=== PATIENT | female | born 1995 | race American Indian/Alaskan Native ===

== ENCOUNTER 2017-12-31 13:59 | Emergency (ER) | payer SELFPAY ==
[2017-12-31 14:21] VITALS: BP 119/81
--- NOTE | 2017-12-31 17:02 | Emergency Department Report ---
Minor Respiratory - HPI Chief Complaint: Sore Throat Stated Complaint: TONSILS SWOLLEN Time Seen by Provider: 12/31/17 17:02 Duration: 4 Days Pain Location: Throat Severity: severe Minor Respiratory: Yes Sore Throat, Yes Able to Tolerate Fluids, Yes Sick Contacts, Yes Fever, No Rhinorrhea, No Ear Pain, No Cough, No Hemoptysis, No Chest Pain, No Shortness of Breath Other History: This is a 22 y.o. A.A. female that presents with sore throat for 4 days. Patient reports seeing white exudate 2 days ago. Her grandmother gave her some herbs which helped removed exudate but it is very difficult to swallow or open mouth. She is taking OTC NSAID's that are controlling pain for 2 hours at a time. Denies chest pain, congestion, SOB, and drooling. ED Review of Systems ROS: Stated complaint: TONSILS SWOLLEN Other details as noted in HPI Constitutional: denies: chills, fever, malaise ENT: throat pain. denies: ear pain, congestion Respiratory: denies: cough, shortness of breath, SOB with exertion, wheezing Cardiovascular: denies: chest pain, palpitations, dyspnea on exertion, syncope Gastrointestinal: denies: abdominal pain, nausea, vomiting, diarrhea Neurological: denies: headache, weakness, numbness, paresthesias Psychiatric: denies: anxiety, depression ED Past Medical Hx - Past Medical History Previous Medical History?: No - Surgical History Past Surgical History?: No - Social History Smoking Status: Current Some Day Smoker Substance Use Type: Alcohol, Marijuana - Medications Home Medications: Home Medications Medication Instructions Recorded Confirmed Last Taken Type Penicillin V Potassium 500 mg PO BID 10 Days #20 tablet 12/31/17 Unknown Rx Minor Respiratory Exam - Exam General: Vital signs noted. No distress. Alert and acting appropriately. HEENT: Yes Pharyngeal Erythema, Yes Moist Mucous Membranes, Yes Rhinorrhea ( turbinates congested and clear discharge), No Pharyngeal Exudates, No Conjuctival Injection, No Frontal Tenderness, No Maxillary Tenderness Ear: Neither TM Bulge, Neither TM Erythema, Neither EAC Pain, Neither EAC Discharge Neck: Yes Supple, No Adenopathy Lungs: Yes Good Air Exchange, No Wheezes, No Ronchi, No Stridor, No Cough, No Labored Respirations, No Retractions, No Use of Accessory Muscles, No Other Abnormal Lung Sounds Heart: Yes Regular, No Murmur Abdomen: Yes Normal Bowel Sounds, No Tenderness, No Peritoneal Signs Skin: No Rash, No Edema Neurologic: Alert and oriented, no deficits. Musculoskeletal: Unremarkable. ED Course Vital Signs 12/31/17 14:17 Temperature 99.3 F Pulse Rate 118 H Respiratory 20 Rate Blood Pressure 119/81 O2 Sat by Pulse 99 Oximetry ED Medical Decision Making - Medical Decision Making This is a 22 y.o. female that presents with sore throat for 4 days. Patient examined by me and stable. No distress noted. Rapid strep obtained and positive for strep. Vitals stable. Given bicillin I-A 1.2 mL IM and lidocaine viscous 15 ml po once in ER. Start penicillin V 500 mg po bid x 10 days. Take tylenol or ibuprofen for pain. Discussed plan with patient and he agreed with plan to treat outpatient. Discharged home. Return to work tomorrow. Follow up with PCP in 48-72 hours. Critical care attestation.: If time is entered above; I have spent that time in minutes in the direct care of this critically ill patient, excluding procedure time. ED Disposition Clinical Impression: Streptococcal pharyngitis Disposition: DC-01 TO HOME OR SELFCARE Is pt being admited?: No Does the pt Need Aspirin: No Condition: Stable Instructions: Strep Throat (ED) Additional Instructions: Expect symptoms to improve within 3 or 4 days. There is no need for bed rest or isolation. Use tyleonl or ibuprofen for symptoms of sore throat, headache, and fever. Return to work in 24 hours of taking antibiotics. Follow up with Primary Care Provider in 48-72 hours. Prescriptions: Penicillin V Potassium 500 mg PO BID 10 Days #20 tablet Referrals: [facility] [Outside] - 3-5 Days [facility] [Outside] - 3-5 Days [facility] [Outside] - 3-5 Days Forms: Work/School Release Form(ED) Time of Disposition: 17:57 Print Language: ITALIAN
[2017-12-31] MEDS ORDERED: BICILLIN L-A IM ONE (17:54)
[2017-12-31] MEDS ORDERED: LIDOCAINE VISCOUS 2% PO ONE (17:55)
== END 2017-12-31 18:25 | disposition home or self-care (01) ==
LOC: ED 13:59
DX: J02.0 Streptococcal pharyngitis (principal); F17.200 Nicotine dependence, unspecified, uncomplicated; F12.10 Cannabis abuse, uncomplicated
CPT/HCPCS: 87430; 96372; 99283; J0561

== ENCOUNTER 2018-06-23 13:56 | Emergency (ER) | payer SELFPAY ==
[2018-06-23 14:19] VITALS: BP 113/72
--- NOTE | 2018-06-23 16:28 | Emergency Department Report ---
ED ENT HPI - General Chief complaint: Sore Throat Stated complaint: MOUTH PAIN Time Seen by Provider: 06/23/18 16:25 Source: patient Mode of arrival: Ambulatory Limitations: No Limitations - History of Present Illness Initial comments: This is a 22-year-old female nontoxic, well nourished in appearance, no acute signs of distress presents to the ED with c/o of sore throat. Patient describes sore throat as swallowing razer blades. Patient denies any fever, chills, headache, stiff neck, nausea, vomiting, chest pain, shortness of breath, numbness or tingling. Patient denies any drooling or hoarseness. Patient denies any allergies or significant past medical history. MD complaint: sore throat Location: throat Severity: mild Severity scale (0 -10): 8 Quality: aching Consistency: constant Improves with: none Worsens with: swallowing Associated Symptoms: pain with swallowing, sore throat. denies: fever, cough, gum swelling, toothache, tinnitus, hearing loss, discharge from ear, rhinorrhea - Related Data Previous Rx's Medication Instructions Recorded Last Taken Type Penicillin V Potassium 500 mg PO BID 10 Days #20 tablet 12/31/17 Unknown Rx Amoxicillin/K Clav Tab [Augmentin 1 tab PO Q12HR #20 tab 06/23/18 Unknown Rx 875 mg] Ibuprofen [Motrin] 600 mg PO Q8H PRN #30 tablet 06/23/18 Unknown Rx Nystas/Diphen/Xyl Visc/Mylanta 15 ml MM Q6H PRN 5 Days ml 06/23/18 Unknown Rx [Magic Mouthwash] Allergies Allergy/AdvReac Type Severity Reaction Status Date / Time No Known Allergies Allergy Unverified 12/31/17 14:17 ED Dental HPI - General Chief complaint: Sore Throat Stated complaint: MOUTH PAIN Time Seen by Provider: 06/23/18 16:25 Source: patient Mode of arrival: Ambulatory Limitations: No Limitations - Related Data Previous Rx's Medication Instructions Recorded Last Taken Type Penicillin V Potassium 500 mg PO BID 10 Days #20 tablet 12/31/17 Unknown Rx Amoxicillin/K Clav Tab [Augmentin 1 tab PO Q12HR #20 tab 06/23/18 Unknown Rx 875 mg] Ibuprofen [Motrin] 600 mg PO Q8H PRN #30 tablet 06/23/18 Unknown Rx Nystas/Diphen/Xyl Visc/Mylanta 15 ml MM Q6H PRN 5 Days ml 06/23/18 Unknown Rx [Magic Mouthwash] Allergies Allergy/AdvReac Type Severity Reaction Status Date / Time No Known Allergies Allergy Unverified 12/31/17 14:17 ED Review of Systems ROS: Stated complaint: MOUTH PAIN Other details as noted in HPI Constitutional: denies: chills, fever Eyes: denies: eye pain, eye discharge, vision change ENT: throat pain. denies: ear pain Respiratory: denies: cough, shortness of breath, wheezing Cardiovascular: denies: chest pain, palpitations Endocrine: no symptoms reported Gastrointestinal: denies: abdominal pain, nausea, diarrhea Genitourinary: denies: urgency, dysuria, discharge Musculoskeletal: denies: back pain, joint swelling, arthralgia Skin: denies: rash, lesions Neurological: denies: headache, weakness, paresthesias Psychiatric: denies: anxiety, depression Hematological/Lymphatic: denies: easy bleeding, easy bruising ED Past Medical Hx - Past Medical History Hx Asthma: Yes - Surgical History Past Surgical History?: No - Social History Smoking Status: Current Every Day Smoker Substance Use Type: Alcohol - Medications Home Medications: Home Medications Medication Instructions Recorded Confirmed Last Taken Type Penicillin V Potassium 500 mg PO BID 10 Days #20 tablet 12/31/17 Unknown Rx Amoxicillin/K Clav Tab [Augmentin 1 tab PO Q12HR #20 tab 06/23/18 Unknown Rx 875 mg] Ibuprofen [Motrin] 600 mg PO Q8H PRN #30 tablet 06/23/18 Unknown Rx Nystas/Diphen/Xyl Visc/Mylanta 15 ml MM Q6H PRN 5 Days ml 06/23/18 Unknown Rx [Magic Mouthwash] ED Physical Exam - General Limitations: No Limitations General appearance: alert, in no apparent distress - Head Head exam: Present: atraumatic, normocephalic - Eye Eye exam: Present: normal appearance Pupils: Present: normal accommodation - ENT ENT exam: Present: mucous membranes moist, TM's normal bilaterally - Expanded ENT Exam Expanded Ear exam: Present: normal external inspection Mouth exam: Present: normal external inspection, tongue normal. Absent: drooling, trismus, muffled voice, tongue elevation, laceration Teeth exam: Present: normal inspection Throat exam: Positive: tonsillar erythema, tonsillomegaly (2+), tonsillar exudate, other (Uvula midline.). Negative: R peritonsillar mass, L peritonsillar mass - Neck Neck exam: Present: normal inspection, full ROM, lymphadenopathy (bilateral tonsillar). Absent: tenderness, meningismus - Respiratory Respiratory exam: Present: normal lung sounds bilaterally. Absent: respiratory distress - Cardiovascular Cardiovascular Exam: Present: regular rate, normal rhythm. Absent: systolic murmur, diastolic murmur, rubs, gallop - GI/Abdominal GI/Abdominal exam: Present: soft, normal bowel sounds - Extremities Exam Extremities exam: Present: normal inspection - Back Exam Back exam: Present: normal inspection - Neurological Exam Neurological exam: Present: alert, oriented X3 - Psychiatric Psychiatric exam: Present: normal affect, normal mood - Skin Skin exam: Present: warm, dry, intact, normal color. Absent: rash ED Course Vital Signs 06/23/18 14:17 Temperature 99.2 F Pulse Rate 106 H Respiratory 18 Rate Blood Pressure 113/72 O2 Sat by Pulse 100 Oximetry - Reevaluation(s) Reevaluation #1: 06/23/18 16:27 Patient is speaking in full sentences with no signs of distress noted. Critical care attestation.: If time is entered above; I have spent that time in minutes in the direct care of this critically ill patient, excluding procedure time. ED Disposition Clinical Impression: Exudative tonsillitis Disposition: DC-01 TO HOME OR SELFCARE Is pt being admited?: No Does the pt Need Aspirin: No Condition: Stable Instructions: Tonsillitis (ED) Additional Instructions: Follow-up with a primary care/ENT doctor in 3-5 days or if symptoms worsen and continue return to emergency room as soon as possible. Prescriptions: Amoxicillin/K Clav Tab [Augmentin 875 mg] 1 tab PO Q12HR #20 tab Ibuprofen [Motrin] 600 mg PO Q8H PRN #30 tablet PRN Reason: Pain Nystas/Diphen/Xyl Visc/Mylanta [Magic Mouthwash] 15 ml MM Q6H PRN 5 Days ml PRN Reason: Sore Throat Referrals: PRIMARY CARE, [Primary Care Provider] - 3-5 Days SIENNA CUELLAR MD [Staff Physician] - 3-5 Days [facility] [Outside] - 3-5 Days [facility] [Outside] - 3-5 Days Forms: Work/School Release Form(ED)
== END 2018-06-23 17:01 | disposition home or self-care (01) ==
LOC: ED 13:56
DX: J03.90 Acute tonsillitis, unspecified (principal); J45.909 Unspecified asthma, uncomplicated; F17.200 Nicotine dependence, unspecified, uncomplicated
CPT/HCPCS: 87116; 87430; 99283

== ENCOUNTER 2020-08-29 18:28 | Emergency (ER) | payer SELFPAY ==
[2020-08-29 19:52] VITALS: BP 125/65
[2020-08-29] MEDS ORDERED: IBUPROFEN 600 MG TAB PO ONE (20:47)
[2020-08-29] MEDS ORDERED: dexAMETHasone 20 MG/5 ML VIAL IM ONE (20:47)
--- NOTE | 2020-08-29 20:48 | Emergency Department Report ---
ED ENT HPI - General Chief complaint: Sore Throat Stated complaint: STREP THROAT Time Seen by Provider: 08/29/20 20:47 Source: patient Mode of arrival: Ambulatory Limitations: No Limitations - History of Present Illness Initial comments: Patient is a 24-year-old female presents emergency room complaints of a sore throat that began this morning. She states that she has associated pain with swallowing. She is able to tolerate p.o. intake. She has associated fever. She states that her throat feels swollen. She denies any vomiting, diarrhea, cough, shortness of breath, abdominal pain. She denies any sick contacts or recent travel. Has a past medical history of asthma. No allergies to medications. Last menstrual cycle beginning of July. - Related Data Previous Rx's Medication Instructions Recorded Last Taken Type Penicillin V Potassium 500 mg PO BID 10 Days #20 tablet 12/31/17 Unknown Rx Amoxicillin/K Clav Tab [Augmentin 1 tab PO Q12HR #20 tab 06/23/18 Unknown Rx 875 mg] Ibuprofen [Motrin] 600 mg PO Q8H PRN #30 tablet 06/23/18 Unknown Rx Nystas/Diphen/Xyl Visc/Mylanta 15 ml MM Q6H PRN 5 Days ml 06/23/18 Unknown Rx [Magic Mouthwash] Penicillin Vk [Veetids TAB] 500 mg PO BID 10 Days #40 tablet 08/29/20 Unknown Rx Allergies Allergy/AdvReac Type Severity Reaction Status Date / Time No Known Allergies Allergy Unverified 12/31/17 14:17 ED Dental HPI - General Chief complaint: Sore Throat Stated complaint: STREP THROAT Time Seen by Provider: 08/29/20 20:47 Source: patient Mode of arrival: Ambulatory Limitations: No Limitations - Related Data Previous Rx's Medication Instructions Recorded Last Taken Type Penicillin V Potassium 500 mg PO BID 10 Days #20 tablet 12/31/17 Unknown Rx Amoxicillin/K Clav Tab [Augmentin 1 tab PO Q12HR #20 tab 06/23/18 Unknown Rx 875 mg] Ibuprofen [Motrin] 600 mg PO Q8H PRN #30 tablet 06/23/18 Unknown Rx Nystas/Diphen/Xyl Visc/Mylanta 15 ml MM Q6H PRN 5 Days ml 06/23/18 Unknown Rx [Magic Mouthwash] Penicillin Vk [Veetids TAB] 500 mg PO BID 10 Days #40 tablet 08/29/20 Unknown Rx Allergies Allergy/AdvReac Type Severity Reaction Status Date / Time No Known Allergies Allergy Unverified 12/31/17 14:17 ED Review of Systems ROS: Stated complaint: STREP THROAT Other details as noted in HPI Comment: All other systems reviewed and negative ED Past Medical Hx - Past Medical History Previous Medical History?: Yes Hx Asthma: Yes - Social History Smoking Status: Current Every Day Smoker Substance Use Type: Alcohol - Medications Home Medications: Home Medications Medication Instructions Recorded Confirmed Last Taken Type Penicillin V Potassium 500 mg PO BID 10 Days #20 tablet 12/31/17 Unknown Rx Amoxicillin/K Clav Tab [Augmentin 1 tab PO Q12HR #20 tab 06/23/18 Unknown Rx 875 mg] Ibuprofen [Motrin] 600 mg PO Q8H PRN #30 tablet 06/23/18 Unknown Rx Nystas/Diphen/Xyl Visc/Mylanta 15 ml MM Q6H PRN 5 Days ml 06/23/18 Unknown Rx [Magic Mouthwash] Penicillin Vk [Veetids TAB] 500 mg PO BID 10 Days #40 tablet 08/29/20 Unknown Rx ED Physical Exam - General Limitations: No Limitations General appearance: alert, in no apparent distress - Head Head exam: Present: atraumatic, normocephalic - Eye Eye exam: Present: normal appearance - ENT ENT exam: Present: mucous membranes moist, TM's normal bilaterally, normal external ear exam, other (bilateral tonsilar hypertrophy with erythema and exudates, uvula is midline, no uvular edema or deviation, no tongue elevation, no muffled voice, no trismus) - Respiratory Respiratory exam: Present: normal lung sounds bilaterally. Absent: respiratory distress, wheezes, rales, rhonchi, stridor, chest wall tenderness, accessory muscle use, decreased breath sounds, prolonged expiratory - Cardiovascular Cardiovascular Exam: Present: regular rate, normal rhythm, normal heart sounds. Absent: systolic murmur, diastolic murmur, rubs, gallop - Neurological Exam Neurological exam: Present: alert, oriented X3 - Psychiatric Psychiatric exam: Present: normal affect, normal mood - Skin Skin exam: Present: warm, dry, intact ED Course Vital Signs 08/29/20 08/29/20 19:50 21:45 Temperature 101.7 F H 99.2 F Pulse Rate 111 H 97 H Respiratory 15 17 Rate Blood Pressure 125/65 O2 Sat by Pulse 100 98 Oximetry ED Medical Decision Making - Lab Data Vital Signs (72 hours) 08/29/20 08/29/20 19:50 21:45 Temperature 101.7 F H 99.2 F Pulse Rate 111 H 97 H Respiratory 15 17 Rate Blood Pressure 125/65 O2 Sat by Pulse 100 98 Oximetry - Medical Decision Making Patient is a 24-year-old female presents emergency room complaints of a sore throat that began this morning. She states that she has associated pain with swallowing. She is able to tolerate p.o. intake. She has associated fever. She states that her throat feels swollen. She denies any vomiting, diarrhea, cough, shortness of breath, abdominal pain. She denies any sick contacts or recent travel. Has a past medical history of asthma. No allergies to medications. Last menstrual cycle beginning of July. initial vitals with fever and elevated heart rate which improved upon repeat. On exam: bilateral tonsilar hypertrophy with erythema and exudates, uvula is midline, no uvular edema or deviation, no tongue elevation, no muffled voice, no trismus. Examination appears consistent with tonsillitis. No signs of peritonsillar abscess at this time. Patient given dexamethasone IM and ibuprofen while in the emergency department and symptoms improved. She is able to tolerate p.o. intake. Patient given penicillin VK. Advised patient Please take medication as prescribed. Increase your fluid intake. May alternate Tylenol and then ibuprofen every 6-8 hours as needed for fever or discomfort. Gargle with warm salt water 3 times a day. May use [id number] throat spray or throat lozenges. Throw away your toothbrush. Do not allow others to drink after you do not drink after anyone else. Follow-up with your primary care doctor for reexamination. Return to emergency room for new or worsening symptoms. - Differential Diagnosis Tonsillitis, strep pharyngitis, mononucleosis, viral syndrome Critical care attestation.: If time is entered above; I have spent that time in minutes in the direct care of this critically ill patient, excluding procedure time. ED Disposition Clinical Impression: Tonsillitis Disposition: DC-01 TO HOME OR SELFCARE Is pt being admited?: No Does the pt Need Aspirin: No Condition: Stable Instructions: Tonsillitis, [id number] Additional Instructions: Please take medication as prescribed. Increase your fluid intake. May alternate Tylenol and then ibuprofen every 6-8 hours as needed for fever or discomfort. Gargle with warm salt water 3 times a day. May use [id number] throat spray or throat lozenges. Throw away your toothbrush. Do not allow others to drink after you do not drink after anyone else. Follow- up with your primary care doctor for reexamination. Return to emergency room for new or worsening symptoms. Prescriptions: Penicillin Vk [Veetids TAB] 500 mg PO BID 10 Days #40 tablet Referrals: MARINA CHAMBERS MD [Staff Physician] - 2-3 Days [facility] [Provider Group] - 2-3 Days Time of Disposition: 20:52 Print Language: AMHARIC
== END 2020-08-29 21:45 | disposition home or self-care (01) ==
LOC: ED 18:28
DX: J03.80 Acute tonsillitis due to other specified organisms (principal)
CPT/HCPCS: 96372; 99282; J1100

== ENCOUNTER 2021-02-14 15:51 | Emergency (ER) | payer SELFPAY | END 2021-02-15 00:37 | disposition left against medical advice (07) | LOC: ED 15:51 ==

== ENCOUNTER 2021-02-19 09:19 | Emergency (ER) | payer SELFPAY ==
[2021-02-19 09:58] VITALS: BP 128/62
--- NOTE | 2021-02-19 10:28 | Emergency Department Report ---
- General Chief complaint: Urogenital-Female Stated complaint: TIGHT PAIN UNDER BREAST, RASH Time Seen by Provider: 02/19/21 09:28 Source: patient Mode of arrival: Ambulatory Limitations: No Limitations - History of Present Illness Initial comments: This is a 25-year-old female nontoxic, well nourished in appearance, no acute signs of distress presents to the ED with c/o of redness and pain with crusting and itching to bilateral areola X several days. Patient stated it originally started with itching and has been itching it which worsened symptoms patient denies any pus or drainage. Patient denies any fever, chills, nausea, vomiting, chest pain, shortness of breath, headache or stiff neck. Patient denies any allergies or significant past medical history. -: days(s) Quality: burning, aching Consistency: constant Improves with: none Worsens with: none Context: none Associated symptoms: denies other symptoms - Related Data Previous Rx's Medication Instructions Recorded Last Taken Type Penicillin V Potassium 500 mg PO BID 10 Days #20 tablet 12/31/17 Unknown Rx Amoxicillin/K Clav Tab [Augmentin 1 tab PO Q12HR #20 tab 06/23/18 Unknown Rx 875 mg] Ibuprofen [Motrin] 600 mg PO Q8H PRN #30 tablet 06/23/18 Unknown Rx Nystas/Diphen/Xyl Visc/Mylanta 15 ml MM Q6H PRN 5 Days ml 06/23/18 Unknown Rx [Magic Mouthwash] Penicillin Vk [Veetids TAB] 500 mg PO BID 10 Days #40 tablet 08/29/20 Unknown Rx Clindamycin [Clindamycin CAP] 300 mg PO Q8H #21 cap 02/19/21 Unknown Rx Clotrimazole 1% [Lotrimin 1%] 1 applic TP BID #1 tube 02/19/21 Unknown Rx Allergies Allergy/AdvReac Type Severity Reaction Status Date / Time No Known Allergies Allergy Unverified 12/31/17 14:17 Abscess Boil HPI - HPI Chief Complaint: Urogenital-Female Stated Complaint: TIGHT PAIN UNDER BREAST, RASH Time Seen by Provider: 02/19/21 09:28 Home Medications: Previous Rx's Medication Instructions Recorded Last Taken Type Penicillin V Potassium 500 mg PO BID 10 Days #20 tablet 12/31/17 Unknown Rx Amoxicillin/K Clav Tab [Augmentin 1 tab PO Q12HR #20 tab 06/23/18 Unknown Rx 875 mg] Ibuprofen [Motrin] 600 mg PO Q8H PRN #30 tablet 06/23/18 Unknown Rx Nystas/Diphen/Xyl Visc/Mylanta 15 ml MM Q6H PRN 5 Days ml 06/23/18 Unknown Rx [Magic Mouthwash] Penicillin Vk [Veetids TAB] 500 mg PO BID 10 Days #40 tablet 08/29/20 Unknown Rx Clindamycin [Clindamycin CAP] 300 mg PO Q8H #21 cap 02/19/21 Unknown Rx Clotrimazole 1% [Lotrimin 1%] 1 applic TP BID #1 tube 02/19/21 Unknown Rx Allergies/Adverse Reactions: Allergies Allergy/AdvReac Type Severity Reaction Status Date / Time No Known Allergies Allergy Unverified 12/31/17 14:17 ED Review of Systems ROS: Stated complaint: TIGHT PAIN UNDER BREAST, RASH Other details as noted in HPI Comment: All other systems reviewed and negative Constitutional: denies: chills, fever Eyes: denies: eye pain, eye discharge, vision change ENT: denies: ear pain, throat pain Respiratory: denies: cough, shortness of breath, wheezing Cardiovascular: denies: chest pain, palpitations Endocrine: no symptoms reported Gastrointestinal: denies: abdominal pain, nausea, diarrhea Genitourinary: denies: urgency, dysuria, discharge Musculoskeletal: denies: back pain, joint swelling, arthralgia Skin: denies: rash, lesions Neurological: denies: headache, weakness, paresthesias Psychiatric: denies: anxiety, depression Hematological/Lymphatic: denies: easy bleeding, easy bruising ED Past Medical Hx - Past Medical History Previous Medical History?: Yes Hx Asthma: Yes - Surgical History Past Surgical History?: No - Social History Smoking Status: Never Smoker Substance Use Type: Alcohol, Marijuana - Medications Home Medications: Home Medications Medication Instructions Recorded Confirmed Last Taken Type Penicillin V Potassium 500 mg PO BID 10 Days #20 tablet 12/31/17 Unknown Rx Amoxicillin/K Clav Tab [Augmentin 1 tab PO Q12HR #20 tab 06/23/18 Unknown Rx 875 mg] Ibuprofen [Motrin] 600 mg PO Q8H PRN #30 tablet 06/23/18 Unknown Rx Nystas/Diphen/Xyl Visc/Mylanta 15 ml MM Q6H PRN 5 Days ml 06/23/18 Unknown Rx [Magic Mouthwash] Penicillin Vk [Veetids TAB] 500 mg PO BID 10 Days #40 tablet 08/29/20 Unknown Rx Clindamycin [Clindamycin CAP] 300 mg PO Q8H #21 cap 02/19/21 Unknown Rx Clotrimazole 1% [Lotrimin 1%] 1 applic TP BID #1 tube 02/19/21 Unknown Rx ED Physical Exam - General Limitations: No Limitations General appearance: alert, in no apparent distress - Head Head exam: Present: atraumatic, normocephalic - Eye Eye exam: Present: normal appearance - Neck Neck exam: Present: normal inspection, full ROM - Respiratory Respiratory exam: Absent: respiratory distress - Cardiovascular Cardiovascular Exam: Present: regular rate - Extremities Exam Extremities exam: Present: full ROM - Back Exam Back exam: Present: full ROM - Neurological Exam Neurological exam: Present: alert, oriented X3, normal gait - Psychiatric Psychiatric exam: Present: normal affect, normal mood - Skin Skin exam: Present: warm, dry, intact, normal color, erythema, other (Bilateral areola crusting with redness and itching noted. No induration or fluctuance noted. No signs of abscess. Blower Blast Furnace Padmini present during exam.). Absent: rash, cyanosis, diaphoretic, urticaria, vesicles, petechiae, pallor, abrasion, ecchymosis ED Course Vital Signs 02/19/21 09:46 Temperature 99.0 F Pulse Rate 83 Respiratory 20 Rate Blood Pressure 128/62 O2 Sat by Pulse 100 Oximetry - Reevaluation(s) Reevaluation #1: 02/19/21 10:26 Patient is speaking in full sentences with no signs of distress noted. ED Medical Decision Making - Medical Decision Making This is a 25-year-old female that presents with cellulitis and tinea corporis. Patient is stable and was examined by me. There is no induration, fluctuance. No signs of abscess formation. Patient be discharged with clindamycin and Clotrimazole. patient was referred to Follow-up with a primary care doctor in 3-5 days or if symptoms worsen and continue return to emergency room as soon as possible. At time of discharge, the patient does not seem toxic or ill in appearance. No acute signs of distress noted. Patient agrees to discharge treatment plan of care. No further questions noted by the patient. Critical care attestation.: If time is entered above; I have spent that time in minutes in the direct care of this critically ill patient, excluding procedure time. ED Disposition Clinical Impression: Tinea corporis Cellulitis Qualifiers: Site of cellulitis: other site Qualified Code(s): L03.818 - Cellulitis of other sites Disposition: DC- TO HOME OR SELFCARE Is pt being admited?: No Does the pt Need Aspirin: No Condition: Stable Instructions: Cellulitis, Adult Additional Instructions: Follow-up with a primary care doctor in 3-5 days or if symptoms worsen and continue return to emergency room as soon as possible. Prescriptions: Clindamycin [Clindamycin CAP] 300 mg PO Q8H #21 cap Clotrimazole 1% [Lotrimin 1%] 1 applic TP BID #1 tube Referrals: PRIMARY CAREMD [Primary Care Provider] - 3-5 Days MARINA CHAMBERS MD [Staff Physician] - 3-5 Days Forms: Work/School Release Form(ED) Time of Disposition: 10:28
== END 2021-02-19 10:50 | disposition home or self-care (01) ==
LOC: ED 09:19
DX: B35.4 Tinea corporis (principal); N61.0 Mastitis without abscess; J45.909 Unspecified asthma, uncomplicated; F12.90 Cannabis use, unspecified, uncomplicated; Z98.890 Other specified postprocedural states; Z79.899 Other long term (current) drug therapy
CPT/HCPCS: 99282

== ENCOUNTER 2021-04-03 14:58 | Emergency (ER) | payer SELFPAY ==
[2021-04-03 16:39] VITALS: BP 110/62
--- NOTE | 2021-04-03 18:30 | Emergency Department Report ---
Chief Complaint: Skin/Abscess/Foreign Body Stated Complaint: NIPPLE SKIN PEELING Time Seen by Provider: 04/03/21 17:42 - HPI History of Present Illness: 25-year-old female patient presents emergency department complaints of bilateral nipple irritation for 1 year. Patient states she was evaluated in the emergency department for the same problem approximately 1 month ago. She was diagnosed with tinea corporis and prescribed a topical antifungal. States this medication did not help. She was referred to a primary care provider but did not follow- up. Symptoms are unchanged today. She has been applying coconut oil to the affected areas with limited relief. Patient is not breast-feeding. Patient is not . Patient underwent mammogram several years ago. Denies all other complaints at this time. - ROS Review of Systems: GENERAL: Negative for fever. CARDIOVASCULAR: Negative for chest pain. PULMONARY: Negative for shortness of breath. GASTROINTESTINAL: Negative for abdominal pain. MUSCULOSKELETAL: Negative for back pain. NEUROLOGICAL: Negative for headache. INTEGUMENTARY: Positive for nipple irritation. - Exam Vital Signs: Vital Signs 04/03/21 16:37 Temperature 98.2 F Pulse Rate 56 L Respiratory 16 Rate Blood Pressure 110/62 O2 Sat by Pulse 97 Oximetry Physical Exam: General: Awake, appropriately interactive, no acute distress. Neck: Supple. Full range of motion intact. Breast: Female painter ski edge (ALLISON Murry) present. Hyperpigmentation noted to the areolar area bilaterally. No overlying warmth or erythema. No nipple discharge. No regional lymphadenopathy. Cardiovascular: Normal peripheral perfusion. Pulmonary: No respiratory distress. Patient is speaking normally without use of accessory muscles. Skin: No apparent rashes or lesions. Neurological: No facial asymmetry. Speech is clear. Follows commands. Patient is alert and oriented. Musculoskeletal: Moves all four extremities spontaneously with normal range of motion. Psych: Cooperative. Appropriate mood and affect. MSE screening note: Focused history and physical exam performed. Due to findings the following was ordered: ED Medical Decision Making - Medical Decision Making Patient presents emergency department with complaints of nipple irritation for over 1 year. Symptoms are unchanged today. She has already been valuated and treated in the emergency department for this issue. Patient has not followed up with an outpatient provider. She is afebrile, hemodynamically stable, no distress. No clinical indication for further diagnostic work-up or treatment on an emergent basis. Discharged home with referral to primary care provider and breast specialist. BILLING/CODING: This patient encounter does not represent a certified medical emergency. ED Disposition for MSE Clinical Impression: Encounter for medical screening examination Disposition: DC- TO HOME OR SELFCARE Is pt being admited?: No Does the pt Need Aspirin: No Condition: Stable Instructions: Medical Screening Exam Additional Instructions: Follow-up with primary care provider and/or breast specialist this week. Call tomorrow to schedule appointment. See referral information below. Return to the emergency department immediately for new or worsening symptoms. Referrals: MARINA CHAMBERS MD [Staff Physician] - 3-5 Days [facility] [Provider Group] - 3-5 Days PINO PARSONS MD [Staff Physician] - 3-5 Days Time of Disposition: 18:30
== END 2021-04-03 18:37 | disposition home or self-care (01) ==
LOC: ED 14:58
DX: Z00.00 Encounter for general adult medical examination without abnormal findings (principal)
CPT/HCPCS: 99281